=== PATIENT | female | born 1985 | race Caucasian/White ===

== ENCOUNTER 2016-11-10 07:15 | Inpatient (IN) | payer OTHER ==
[2016-11-11] MEDS ORDERED: Scopolamine 1.5 MG Transdermal Patch TOP SCH (06:30)
[2016-11-11] MEDS ORDERED: Gabapentin 300 MG Cap PO ONE (06:30)
[2016-11-11] MEDS ORDERED: Celecoxib 200 MG Cap PO ONE (06:30)
[2016-11-11] MEDS ORDERED: Acetaminophen Soln 650 MG/20.3 ML UD Cup PO ONE (06:30)
[2016-11-11] MEDS ORDERED: Acetaminophen 500 MG Tab PO ONE (06:30)
[2016-11-11] MEDS ORDERED: Dextrose 5%-Lactated Ringers 1,000 ML IV SCH ×4 (07:00→21:03)
[2016-11-11] MEDS ORDERED: cefOXitin 2 GM in Sodium Chloride 0.9% 100 ML IV ONE (07:15)
[2016-11-11] MEDS ORDERED: cefOXitin 2 GM Vial ONE (07:35)
[2016-11-11] MEDS ORDERED: ROPIVACAINE NERVRT SCH ×4 (08:00)
[2016-11-11] MEDS ORDERED: DEXAMETHASONE NERVRT SCH ×4 (08:00)
[2016-11-11] MEDS ORDERED: SODIUM CHLORIDE 0.9% NERVRT SCH ×4 (08:00)
[2016-11-11] MEDS ORDERED: EPINEPHRINE NERVRT SCH ×4 (08:00)
[2016-11-11] MEDS: cefOXitin 2 GM in Sodium Chloride 0.9% 50 ML IV ONE ×2 (08:26→11:49)
[2016-11-11] MEDS ORDERED: fentaNYL 250 MCG/5 ML SDV ONE ×3 (08:37→09:35)
[2016-11-11] MEDS ORDERED: Dexamethasone 4 MG/ML SDV ONE (08:40)
[2016-11-11] MEDS ORDERED: Ondansetron 4 MG/2 ML SDV ONE ×2 (08:40→11:06)
[2016-11-11] MEDS ORDERED: Propofol 200 MG/20 ML SDV ONE (08:40)
[2016-11-11] MEDS ORDERED: Succinylcholine/Normal Saline 200 MG/10 ML Syringe ONE (08:40)
[2016-11-11] MEDS ORDERED: Neostigmine Methylsulfate 1 MG/ML 5 ML Syringe ONE (08:40)
[2016-11-11] MEDS ORDERED: Rocuronium 50 MG/5 ML Vial ONE (08:40)
[2016-11-11] MEDS ORDERED: Lidocaine 2% 100 MG/5 ML Syringe IVPUSH ONE (09:00)
[2016-11-11] MEDS ORDERED: Ketamine 500 MG/5 ML MDV IV ONE (09:00)
[2016-11-11] MEDS ORDERED: Acetaminophen 1,000 MG in Premix Bag 1 BAG IV ONE (10:08)
[2016-11-11] MEDS ORDERED: SCOPOLAMINE PATCH ASK TOP SCH (11:26)
[2016-11-11] MEDS ORDERED: Labetalol 20 MG/4 ML Syringe IVPUSH PRN (11:26)
[2016-11-11] MEDS ORDERED: SCOPOLAMINE PATCH CHECK TOP SCH (11:26)
[2016-11-11] MEDS ORDERED: hydrOXYzine HCl 50 MG/ML SDV IM PRN (11:26)
[2016-11-11] MEDS ORDERED: Ondansetron 4 MG/2 ML SDV IVPUSH PRN (11:26)
[2016-11-11] MEDS ORDERED: Pantoprazole 40 MG Vial IVPUSH SCH (11:30)
[2016-11-11] MEDS: Lidocaine 0.4%/D5W 2 GM/500 ML BAG IV SCH (12:44)
[2016-11-11] MEDS: cefOXitin 2 GM in Sodium Chloride 0.9% 50 ML IV SCH ×2 (14:05→20:46)
[2016-11-11] MEDS: Gabapentin 250 MG/5 ML Solution ML 470 ML Bottle PO SCH ×2 (14:05→20:46)
[2016-11-11] MEDS: MVI, Adult with Vitamin K 10 ML, Thiamine 200 MG, Chromium/Copper/Mang/Selen/Zn 1 ML in... IV SCH ×8 (14:05→16:04)
[2016-11-11] MEDS: Acetaminophen Soln 650 MG/20.3 ML UD Cup PO SCH ×2 (16:05→21:46)
[2016-11-11] MEDS: Heparin Sodium 5,000 Units/ML Vial SUBCUT SCH (18:13)
[2016-11-12] MEDS: Lidocaine 0.4%/D5W 2 GM/500 ML BAG IV SCH (01:34)
[2016-11-12] MEDS: cefOXitin 2 GM in Sodium Chloride 0.9% 50 ML IV SCH (01:37)
[2016-11-12] MEDS ORDERED: Iohexol 647 MG/ML 50 ML SDV PO SCH (02:15)
[2016-11-12] MEDS: Acetaminophen Soln 650 MG/20.3 ML UD Cup PO SCH ×2 (03:16→10:09)
[2016-11-12] MEDS: Heparin Sodium 5,000 Units/ML Vial SUBCUT SCH (06:05)
[2016-11-12] MEDS ORDERED: Celecoxib 200 MG Cap PO SCH (08:00)
[2016-11-12] MEDS ORDERED: Bacitracin/Neomycin/Polymyxin B Oint 28.4 GM Tube TOP ONE (08:05)
[2016-11-12] MEDS: Bacitracin/Neomycin/Polymyxin B Oint 0.9 GM U/D Packet TOP ONE ×2 (08:28→10:10)
[2016-11-12] MEDS ORDERED: buPROPion 150 MG Tab.ER PO SCH (09:00)
[2016-11-12] MEDS ORDERED: Cyanocobalamin (Vitamin B12) 1,000 MCG/ML SDV IM ONE (10:00)
[2016-11-12] MEDS: Gabapentin 250 MG/5 ML Solution ML 470 ML Bottle PO SCH (10:03)
[2016-11-12 11:14] VITALS: BP 135/79
[2016-11-13] MEDS ORDERED: Cyanocobalamin (Vitamin B12) 1,000 MCG/ML SDV IM ONE (09:00)
--- NOTE | 2016-11-13 13:58 | DISCH ---
FINAL DIAGNOSES: 1. Morbid obesity. 2. Marked hepatomegaly. 3. Gastroesophageal reflux disease associated with paraesophageal diaphragmatic hernia. 4. History of prediabetes. OPERATIVE PROCEDURES: Done on 11/11 laparoscopic sleeve gastrectomy with liver biopsy and repair of paraesophageal diaphragmatic hernia. HOSPITAL COURSE: This is a 31-year-old presenting with longstanding morbid obesity. After preoperative evaluation and discussion, wished to proceed with a sleeve gastrectomy as she does have gastroesophageal reflux disease and paraesophageal hernia who was identified correctly at the time of the procedure. Postoperatively, she had no significant problems. The patient was involved in the enhanced recovery protocol receiving transverse abdominis plane block at the beginning of this surgery and has not required any narcotics postoperatively with the use of the various nonnarcotic agents. Her upper GI x-ray looked good this morning, and she is tolerating a liquid diet well, I think on 2 L. She will be discharged home today with this being postop day #1. Medications will include Celebrex 200 mg a day x14 days and Tylenol 650 mg p.o. q.i.d. x5 days, then q.i.d. p.r.n. She has a scopolamine patch, which will be instructed to remove on 11/15 and she will continue her Wellbutrin XL 150 mg 2 tablets daily and Zomig p.r.n. To hold the vitamins and other supplements until after 1st appointment. First appointment will be with Suzie Harrell in [facility] on Monday, 11/29.
--- NOTE | 2016-11-14 08:53 | CR ---
UGI wo KUB HISTORY: sleeve gastrectomy FINDINGS: Limited upper GI series was obtained without fluoroscopy. Water-soluble contrast was admin istered orally. Immediate along with 15 minute delayed images were obtained. Sleeve gastric bypass c hanges are demonstrated. Contrast passes readily into the duodenum. No obstruction is identified. Th ere is no contrast extravasation. Surgical drain is noted left upper quadrant. IMPRESSION: No postoperative complication identified status post sleeve gastric bypass.
--- NOTE | 2016-11-15 13:54 | OR ---
DATE OF PROCEDURE: 11/11/2016 PREOPERATIVE DIAGNOSES: 1. Morbid obesity. 2. History of gastroesophageal reflux disease. POSTOPERATIVE DIAGNOSES: 1. Morbid obesity. 2. Gastroesophageal reflux disease associated with paraesophageal diaphragmatic hernia. 3. Hepatomegaly. OPERATIVE PROCEDURE: 1. Laparoscopic sleeve gastrectomy (71088). 2. Hudson-Cut needle liver biopsy (29724). 3. Repair of paraesophageal diaphragmatic hernia (73263). ANESTHESIA: General. AUTOGLAZIER: Suzie Harrell PA-C. INDICATIONS FOR PROCEDURE: This is a 31-year-old presenting with longstanding morbid obesity and increasingly significant comorbidities. After preoperative evaluation and discussion, she wished to proceed with a sleeve gastrectomy. She also has a history of gastroesophageal reflux disease, so we will explore the area of the diaphragmatic hiatus and repair any hiatal hernia that may be present. Potential risks of the procedure including bleeding, infection, leaks from the various GI tract closures, as well as possibility of cardiopulmonary, septic, or hemorrhagic complications leading to were all discussed, and the patient wishes to proceed. DETAILS OF PROCEDURE: The patient was taken to the operating room. After general endotracheal anesthesia was induced, she was placed in a lithotomy position. Valentino catheter was inserted and the abdomen prepped and draped. At 15 cm inferior, 5 cm left of xiphoid process, a transverse incision was made and peritoneal cavity entered under direct vision with Optiview trocar, inflated to 15 mmHg pressure of CO2. Laparoscope was then reinserted. No underlying trocar insertion site injuries were seen. Following this, 5 additional trocars were placed across the abdomen and general exploration was undertaken. The patient noted to have marked hepatomegaly with liver volume being roughly 2 to 3 times normal liver, grossly fatty infiltrated. Hudson-Cut needle biopsies were obtained from left lobe liver, and minimal bleeding from the biopsy sites which was controlled with electrocautery. The liver was then anteriorly. The patient was noted to have a moderate-sized paraesophageal diaphragmatic hernia with prolapse of portion of gastric fundus, perigastric fat and a plane anterior to the course of the esophagus. At this point, this was reduced and the peritoneum to the right and anterior and just left of the esophagogastric junction was incised. This allowed dissection of these esophagus from crura on each side and a retroesophageal window established. The [place] drain was placed around the area of the esophagus freed up of additional patches with Harmonic scalpel. Care was taken to avoid injury to the anterior vagus nerve. Once the esophagus was well mobilized, the posterior crural repair was accomplished with a series of 0 Ethibond sutures reinforced with PTFE pledgets. At this point, attention was then taken toward the formation of the sleeve gastrectomy, and the greater curvature the Harmonic scalpel was used to divide the omentum away from the edge of the stomach, it was continued upward to include the short gastric vessels including the posterior short gastric vessels. Some more liver adhesions to the posterior aspect of stomach in that area were also taken down. The dissection then continued with division of the omentum down to the level approximately 2 cm proximal to the pylorus. At that point, the area of posterior stomach was inspected, and no additional areas of adherence were noted. At this point, the initial firings of the MARGARET stapler to form the sleeve gastrectomy were mapped out with electrocautery and the anterior aspect of the gastric antrum then, underneath the incisura angularis with care taken to avoid over tightening of the incisura angularis. Once these cauterized aparicio were placed the first 2 firings of the sleeve gastrectomy accomplished with MARGARET black loads. At that point, a 32-Setswana suctioning catheter was placed orally and then positioned along the edge of the lesser curvature, and from there into the antrum. This was then pulled up snuggly against the lesser curvature, where suction was then applied. The remainder of the sleeve gastrectomy was accomplished with a series of reinforced black and reinforced purple MARGARET loads maintaining a fairly snug application of the firings up against the gastrointestinal tube. At that point the gastrectomy appeared to be completed. The areas of the staple line were inspected and fibrin sealant was placed along the area with focus on the area of esophagogastric junction. The omentum was then also tacked up to the area around the esophagogastric junction to help seal that area which would be the area of the highest risk for leak. With occlusion of the duodenum anesthesia then injected air into the gastrointestinal balloon catheter distending the sleeve gastrectomy while it was submerged with antibiotic-containing saline solution. No leaks or bleeding were seen. At that point, the gastrointestinal balloon catheter, which had been taken off suction, was then removed. The area of dissection was then once again inspected. No further problems were noted. A single Artie-Mendez drain was then placed in the left lateral trocar site up against the esophagogastric junction and from into the splenic fossa. The gastric specimen had been removed at that point and the trocar sites were closed with 0 Vicryl stitch at the 12 and 15 mm sites and the skin with a 4-0 Vicryl skin stitch. Dressing was applied. The patient was taken to the recovery room in satisfactory condition. Physician emergency veterinary assistant, Suzie Harrell, played an essential role in assisting in this case, helping position the patient, retract structures as needed, as well as suturing and cutting sutures when indicated. Her presence improved patient safety and decreased operative time. Garo Austin MD /[id number]
== END 2016-11-12 12:41 | disposition home or self-care (01) | DRG 983 ==
LOC: JP.SDSSCHI 11-11 06:13 → JP.SDS 11-11 06:13 → EDSTATUS 11-11 07:15 → JP.2SS 11-11 10:56
PROVIDERS: ADMIT Surgery; ATTEND Surgery
PROC: 0FB24ZX Excision of Left Lobe Liver, Percutaneous Endoscopic Approach, Diagnostic (ICD-10-PCS; principal; 2016-11-11)
PROC: 0DT64ZZ Resection of Stomach, Percutaneous Endoscopic Approach (ICD-10-PCS; principal; 2016-11-11)
PROC: 0BQS4ZZ (ICD-10-PCS; principal; 2016-11-11)
PROC: 0BQR4ZZ (ICD-10-PCS; principal; 2016-11-11)
DX: E66.01 Morbid (severe) obesity due to excess calories (principal); Z68.41 Body mass index [BMI] 40.0-44.9, adult; R16.0 Hepatomegaly, not elsewhere classified; K21.9 Gastro-esophageal reflux disease without esophagitis; K44.9 Diaphragmatic hernia without obstruction or gangrene; R73.03 Prediabetes
CPT/HCPCS: 36415; 74240; 74240-26; 80053; 83036; 83735; 84100; 85027; 86850; 86900; 86901; 88307; 88313; A9270-GY; C9113; J0131; J0171; J0694; J1100; J1644; J2001; J2405; J2704; J2795; J3010; J3411; J3420; J7030; J7042; J7050; Q9967